=== PATIENT | male | born 1970 | race Caucasian/White ===

== ENCOUNTER 2016-07-10 11:25 | Observation (INO) | payer BC ==
[~2016-07-10] VITALS: Ht 182.9 cm; Wt 109.0 kg
--- NOTE | ~2016-07-10 | CON ---
PATIENT'S NAME: LAMINE INTERIANO [facility] AGE: 45 Y [address] ROOM: [place] [address] LOCATION: [facility] ADMIT DATE: 07/10/2016 Consultation DISCHARGE DATE: FAMILY PHYSICIAN: PHYSICIAN, NO ATTENDING PHYSICIAN: Cassie Rushing DATE OF CONSULTATION: 07/10/2016 HISTORY OF PRESENT ILLNESS: Mr. Interiano is a 45-year-old right-handed healthy white male. He was working at [employer], and he cut his left long finger with the high- vat washer. Only water. It was a 1500 pound per square inch machine. Happened at 9 o'clock this morning. He was evaluated at the [place] [facility]. He was given tetanus and Rocephin and transferred to [facility] for additional evaluation. At this time, no pain. No numbness. No other injuries. MEDICATIONS: None. ALLERGIES: NONE. PAST MEDICAL HISTORY: He is healthy. Does not smoke. Does not chew. Alcohol occasionally, none today. Drug Abuse: None. REVIEW OF SYSTEMS: As above. FAMILY MEDICAL HISTORY: Remarkable for colon cancer. PERSONAL AND SOCIAL HISTORY: He lives with his family in [place], [place]. PHYSICAL EXAMINATION: GENERAL: A white male, in no distress, very pleasant. HEENT: Decreased hearing. Vision intact. Upper airway clear. NECK: Nontender. HEART: Pulse rate is regular. LUNGS: Able to take in a deep breath. ABDOMEN: Soft and nontender. EXTREMITIES: The left long finger has approximately a 5 mm cut abrasion on the volar surface. There is no edema of the finger. No tenderness over the PATIENT'S NAME: LAMINE INTERIANO [facility] AGE: 45 Y [address] ROOM: [address] [address] LOCATION: [facility] ADMIT DATE: 07/10/2016 Consultation DISCHARGE DATE: FAMILY PHYSICIAN: PHYSICIAN, NO ATTENDING PHYSICIAN: Cassie Rushing flexor tendon. No surrounding erythema. No purulence. He can fully extend, and he can fully flex without any difficulty. Negative Tinel's over the carpal tunnel. No fullness in the palm. The long finger sensation is completely intact. VASCULAR: Good capillary refill. DIAGNOSTIC DATA: X-rays of the left hand: No fracture. No edema. ASSESSMENT AND PLAN: Pressure injury to the left long finger, but luckily minimal tissue damage. We will admit for observation. We will elevate, do soaks, antibiotics. If tissue necrosis and increased edema would occur, would be n.p.o. and ready for the operating room; however, most likely simple care will be adequate. CASSIE RUSHING MD DPM/david /[id number] d: 07/10/16 1752 t: 07/12/16 1010, CONSULTATION REPORT
--- NOTE | ~2016-07-10 | DS ---
PATIENT'S NAME: LAMINE INTERIANO [facility] AGE: 45 Y [address] ROOM: [address] [address] LOCATION: [id number] ADMIT DATE: 07/10/2016 Discharge Summary DISCHARGE DATE: 07/11/2016 FAMILY PHYSICIAN: PHYSICIAN, NO ATTENDING PHYSICIAN: Cassie Rushing HOSPITAL COURSE: Mr. Interiano had a work injury, open wound left long finger from automobile washer steam injury at work. On examination, open wound in the pulp of the left long fingertip. No edema, no tenderness, no erythema, and no purulence. Neurologically intact. Good capillary refill. Tinel's negative. He was admitted, elevated, soaks, IV antibiotics, range of motion. Finger exam remained normal. Likely, no significant sequela from the automobile washer steam injury. Discharged to home. Regular diet. Activity, keep the left long finger clean. Light activity. Soak the left hand 3 times a day. Two quarts of lukewarm tap water and 2 teaspoons of salt of choice, 15 minutes three times a day. Work on range of motion while soaking. Tylenol for discomfort if needed. Will follow up with Dr. Rushing on 07/21/2016 at 9:00 a.m. CASSIE RUSHING MD DPM/david /[id number] d: 07/11/16 1404 t: 07/12/16 1013, DISCHARGE SUMMARY
--- NOTE | ~2016-07-10 | ER ---
PATIENT'S NAME: LAMINE DONG [facility] AGE: 45 Y [address] ROOM: [place] [address] LOCATION: [facility] ADMIT DATE: 07/10/2016 ER/Outpatient Report DISCHARGE DATE: FAMILY PHYSICIAN: PHYSICIAN, NO ATTENDING PHYSICIAN: Kevyn Rushing CHIEF COMPLAINT: Finger injury. 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 He said it is a 1500 PSI unit. He was only running water today. The unit has run chemicals in the past, however, there were no other chemicals in the substance today. He was seen locally in [place], was given antibiotics around 9:00 a.m. as well immediately upon his arrival, and was given a tetanus booster and came here by private auto after he was referred here for orthopedic evaluation. I did speak with the sending physician, explained that I have an on-call orthopedist, but not a hand surgeon and he stated that he would refer him here for further evaluation. No other acute issues. PAST MEDICAL HISTORY: Documented on the record and reviewed by me. SOCIAL HISTORY: Documented on the record and reviewed by me. MEDICATIONS: Documented on the record and reviewed by me. ALLERGIES: DOCUMENTED ON THE RECORD AND REVIEWED BY ME. REVIEW OF SYSTEMS: All systems are reviewed and negative except as noted in the HPI. PHYSICAL EXAMINATION: VITAL SIGNS: Blood pressure 168/99, pulse 88, respiratory rate 16, temperature 98.6, and SpO2 is 96% on room air. Pain is rated at 1/10. GENERAL: Age-appropriate male. No obvious pain or distress, sitting upright on exam table. NEUROLOGIC: Awake and alert. GCS 15. No focal deficits or asymmetry other than some tingling at the distal tip of the left middle finger. HEENT: Normocephalic, atraumatic. Eyes are PERRL. Oropharynx is clear. NECK: Supple. Trachea is midline. PATIENT'S NAME: LAMINE DONG [facility] AGE: 45 Y [address] ROOM: [place] [address] LOCATION: [facility] ADMIT DATE: 07/10/2016 ER/Outpatient Report DISCHARGE DATE: FAMILY PHYSICIAN: PHYSICIAN, NO ATTENDING PHYSICIAN: Kevyn Rushing CHEST/HEART: Regular rate and rhythm with no murmurs. LUNGS: Clear to auscultation bilateral. No rhonchi, wheezes, or rales. ABDOMEN: Soft, nontender, and nondistended. No rebound or guarding. BACK: Nontender to palpation throughout. No CVA tenderness. EXTREMITIES: Warm and well perfused. The left middle finger is notable for distal phalanx tissue breakdown with what appears to be a blister. There is no tenderness along the tendon sheath. The patient has full active and passive range of motion with no particular pain. Minimal blanching around the area in question, but otherwise neurovascularly intact with slight decrease to some light sensation. SKIN: Warm and well perfused. LABS AND X-RAYS: X-rays of the hand do not reveal any obvious abnormalities, no obvious bony involvement, and no clear evidence of foreign material. IMPRESSION: High-pressure injection injury of the left volar distal phalanx of the middle finger. EMERGENCY DEPARTMENT COURSE: The patient was evaluated as above. X-rays were obtained and Dr. Rushing, orthopedist, who evaluated the patient. We will treat him with antibiotics here in the emergency department. Admit him for observation and possible debridement if any worsening. At this point, there is no sign of compartment syndrome; however, this is a very high risk injury. All questions were answered, and the patient was admitted without further issue. MD ROYER CAMACHO/david /[id number] d: 07/10/160 t: 07/14/16 1732, OUTPATIENT REPORT
[2016-07-10] MEDS ORDERED: PRILOSEC20 MG PO (13:54)
== END 2016-07-11 10:09 | disposition disaster alternative care site (69) ==
LOC: GACC 11:25 → G3N 12:18
PROVIDERS: ADMIT Orthopaedic Surgery
DX: S61.203A Unspecified open wound of left middle finger without damage to nail, initial encounter (principal); W29.3XXA Contact with powered garden and outdoor hand tools and machinery, initial encounter; Y92.63 Factory as the place of occurrence of the external cause; Y99.0 Civilian activity done for income or pay; Z79.899 Other long term (current) drug therapy
CPT/HCPCS: G0378; J0690; J1170; J7030; J7120